=== PATIENT | male | born 1995 | race Caucasian/White ===

== ENCOUNTER 2019-01-14 14:58 | Emergency (ER) | payer BC ==
[~2019-01-14] VITALS: Ht 177.8 cm; Wt 99.0 kg
[~2019-01-14 14:58] MED LIST: AVAPRO75 MG; HYDROCODON-ACE1 EA11 PO; NORCO 5-325 TA1 EACH PO; NORCO 7.5-3251 EACH PO
[2019-01-14] MEDS ORDERED: ONDANSETRON ODT8 MG PO (18:15)
== END 2019-01-14 18:34 | disposition home or self-care (01) ==
LOC: ED 14:58
DX: A08.4 Viral intestinal infection, unspecified (principal); I10 Essential (primary) hypertension; F17.200 Nicotine dependence, unspecified, uncomplicated
CPT/HCPCS: 80053; 81001; 83690; 85025; 96361; 96374; 96375; 99284-25; C9113; J2405; J7030

== ENCOUNTER 2020-08-12 16:03 | Emergency (ER) | payer SELFPAY ==
[~2020-08-12] VITALS: Ht 177.8 cm; Wt 98.9 kg
[~2020-08-12 16:03] MED LIST changes: +ONDANSETRON ODT8 MG PO
== END 2020-08-12 19:31 | disposition home or self-care (01) ==
LOC: ED 16:03
DX: S43.035A Inferior dislocation of left humerus, initial encounter (principal); V00.311A Fall from snowboard, initial encounter; I10 Essential (primary) hypertension; F17.200 Nicotine dependence, unspecified, uncomplicated; Z79.899 Other long term (current) drug therapy
CPT/HCPCS: 23650; 73030; 99152; 99283-25; J2704